=== PATIENT | male | born 1950 | race Caucasian/White ===

== ENCOUNTER → 2018-09-17 | Outpatient (CLI) | payer BC, OTHER ==
[~2018-09-17] MED LIST: ASPI-650 PO; MELO15TA24 PO; MULT-412 PO; OXYC10TA6 PO; OXYC5TAB3 PO; TAMS0.4C2 PO
== END | disposition home or self-care (01) ==
LOC: RAD 12:53
PROVIDERS: ATTEND Family Medicine
DX: M19.042 Primary osteoarthritis, left hand (principal)